=== PATIENT | male | born 1950 | race Caucasian/White ===

== ENCOUNTER 2019-03-06 08:08 | Day surgery (SDC) | payer MEDICARE, BC ==
[2019-03-03 09:21] VITALS: BMI 43.0
[2019-03-06 08:58] LABS: #Eosinphils 0.2 thou/uL (0.0-0.7); #Lymphocytes 1.6 thou/uL (1.20-3.40); #Monocytes 0.6 thou/uL (0.11-0.59); #Neutrophils 4.9 thou/uL (1.40-6.50); %Basophils 0.5 % (0.0-1.0); %Eosinophils 2.8 % (0.0-10.0); %Lymphocytes 21.6 % (21.0-51.0); %Monocytes 8.6 % (0.0-10.0); %Neutrophils 66.5 % (42.0-75.0); Hemoglobin 15.2 g/dL (14.0-18.0); Mean Corpuscular HGB CONC 33.1 g/dL (32.0-36.0); Mean Corpuscular Hemoglobin 29.4 pg (27.0-31.0); Mean Corpuscular Volume 88.7 fL (78.0-98.0); Mean Platelet Volume 7.4 fL (7.4-10.4); Platelet Count 207 thou/uL (130-400); RBC Distribution Width 13.6 % (11.5-14.5); Red Blood Cell (RBC) Count 5.18 mill/uL (4.70-6.10); White Blood Cell (WBC) Count 7.4 thou/uL (4.8-10.8)
[2019-03-06 09:08] LABS: INR-International Normal Ratio 1.1; PTT 33.3 SEC (22.9-36.1); Prothrombin Time 14.1 SEC (12.0-14.7)
[2019-03-06 09:23] LABS: Anion Gap 17 mmol/L (10-20); BUN (Urea Nitrogen) 27 mg/dL (8.4-25.7); Calc. Creatinine Clearance 117 mL/min (70-130); Calcium 9.3 mg/dL (7.8-10.44); Carbon Dioxide 20 mmol/L (23-31); Chloride 103 mmol/L (98-107); Estimated GFR-MDRD 63; Glucose 121 mg/dL (80-115); Potassium 4.1 mmol/L (3.5-5.1); Sodium 136 mmol/L (136-145)
[2019-03-06] MEDS ORDERED: Iothalamate Meglumine 60% 50 ML VIAL FS ONE (09:45)
[2019-03-06] MEDS ORDERED: Fentanyl 100 MCG/2 ML VIAL ONE (09:49)
[2019-03-06] MEDS ORDERED: Lidocaine 1% PF 5 ML VIAL ONE (10:51)
[2019-03-06] MEDS ORDERED: PROPOFOL 200 MG/20 ML VIAL ONE (10:51)
[2019-03-06] MEDS ORDERED: ePHEDrine 50 MG/ML VIAL ONE (10:51)
[2019-03-06] MEDS ORDERED: Ondansetron PF 4 MG/2 ML Vial ONE (10:51)
--- NOTE | 2019-03-06 15:24 | OP ---
DATE OF PROCEDURE: 03/06/2019 PREOPERATIVE DIAGNOSES: Bladder lesion, microhematuria. POSTOPERATIVE DIAGNOSES: Bladder lesion, microhematuria. PROCEDURES PERFORMED: Cystoscopy, biopsy/fulguration of a small, less than 0.5 cm papillary tumor next and just lateral to, but not involving the left ureteral orifice. He also got bilateral retrogrades. We did a biopsy and fulguration of this area. PATHOLOGY SENT: Bladder lesion/small bladder tumor. ESTIMATED BLOOD LOSS: Minimal. Retrograde studies appeared normal to my review. No filling defects. Good drainage on both sides and these were done after the little biopsy and fulguration. FINDINGS: There is a small less than half a centimeter papillary tumor lateral to the left ureteral orifice that was removed with cold cup biopsy forceps and fulgurated with a Bugbee electrode. Stent was not placed as the ureter was draining well and the Conklin catheter was not placed. DESCRIPTION OF PROCEDURE: Obtained written and verbal consent from the patient. After receiving IV antibiotics, he was taken to the operating suite. He was placed in the supine position on the treatment table. PlexiPulses were placed on his lower extremities and turned on. He was given general anesthetic and oral obturator intubation. He was placed in the dorsal lithotomy position and sterilely prepped and draped. Cystoscopy was performed with a 22-Norwegian sheath. This was well lubricated and passed under direct vision through the male urethra into the urinary bladder with aid of a video camera and a 30-degree lens. The bladder was filled and emptied number of times. It was examined both with the 30- and the 70-degree lens. Then, using the 30-degree lens, we brought in a cold cup biopsy forceps and used this to remove the small tumor. We did this in 2 bites. We then cauterized the tumor bed in the mucosa adjacent to it with a small Bugbee electrode. At this point, the bladder was drained, and then, we brought in a 5-Norwegian cone-tipped catheter that was flushed with contrast, it was placed into the left ureteral orifice and contrast was injected in a retrograde manner filling out the ureter and collecting system, probably about 10 to 12 mL of contrast total. There was no filling defect. No evidence of parts of obstruction and the sides drained well. The right side was done, it also drained well. At this point, the bladder was drained. The instruments were removed, and he was awakened and taken by stretcher to the recovery room. Job ID: [id number]
--- NOTE | 2019-03-07 07:27 | RAD ---
Bilateral retrograde pyelogram: HISTORY: Hematuria COMPARISON: CT scan, 02/22/2019 FINDINGS: There is injection of both the right and left ureters. In the upper pole of the right kidney there is a fairly large filling defect in the upper calyx region corresponding to of large calculus on CT. No evidence for ureteral calculus or obstruction. IMPRESSION: No obstructing calculus. Filling defect in the upper pole calyx of the right kidney corresponding to prior right upper pole renal calculus.
== END 2019-03-06 12:20 | disposition home or self-care (01) ==
LOC: SDC 08:08
PROVIDERS: ATTEND Urology
PROC: 0T5B8ZZ Destruction of Bladder, Via Natural or Artificial Opening Endoscopic (ICD-10-PCS; principal; 2019-03-06)
DX: C67.9 Malignant neoplasm of bladder, unspecified (principal); I10 Essential (primary) hypertension; Z79.899 Other long term (current) drug therapy
CPT/HCPCS: 52224; 74420; 80048; 85025; 85610; 85730; C1758; 36415; 88305; 88341; 88342; J0690; J2001; J2405; J2704; J3010; J3490

== ENCOUNTER 2025-03-10 13:46 | Inpatient (IN) | payer MEDICARE, BC ==
[~2025-03-10 13:46] MED LIST: Iopamidol-370 76% 500 ML MDV (1 ML CHARGE) ONE
[2025-03-10 15:14] LABS: #Basophils 0.03 10x3/uL (0.0-0.2); #Eosinophils Less than 0.03 10x3/uL (0.0-0.7); #Monocytes 0.92 10x3/uL (0.11-0.59); #Neutrophils 6.66 10x3/uL (1.40-6.50); %Basophils 0.4 % (0.0-1.0); %Eosinophils 0.1 % (0.0-10.0); %Lymphocytes 8.9 % (21.0-51.0); %Monocytes 11.0 % (0.0-10.0); %Neutrophils 79.2 % (42.0-75.0); Hematocrit 50.6 % (42.0-52.0); Hemoglobin 17.2 g/dL (14.0-18.0); Mean Corpuscular Hemoglobin 29.5 pg (27.0-31.0); Mean Corpuscular Volume 86.6 fL (78.0-98.0); Platelet Count 167 10x3/uL (130-400); Red Blood Cell (RBC) Count 5.84 mill/uL (4.70-6.10); White Blood Cell (WBC) Count 8.40 10x3/uL (4.8-10.8)
[2025-03-10 15:20] LABS: Actual Bicarbonate (HCO3v) 23.6 mEq/L (22-28); Analyzer IN Cardio OR; Base Excess 0.0 mEq/L (-2.0 to +3.0); Calcium, Ionized (venous) 1.10 mmol/L (1.16-1.32); Chloride (VBG) 100 mmol/L (98-106); Hematocrit-VBG 54 % (42.0-52.0); Hemoglobin (Hb) 18.3 g/dL (12.6-17.4); Potassium (VBG) 3.57 mmol/L (3.70-5.30); Sodium 139 mmol/L (133-146)
[2025-03-10 15:36] LABS: ALT (SGPT) 17 U/L (Less than 45); AST (SGOT) 33 U/L (11-34); Albumin 3.7 g/dL (3.1-4.5); Alkaline Phosphatase 67 U/L (40-110); Anion Gap 17 mmol/L (10-20); BUN (Urea Nitrogen) 25 mg/dL (8.4-25.7); Bilirubin, Total 1.2 mg/dL (0.3-1.2); Calc. Creatinine Clearance 0 mL/min (70-130); Calcium 9.2 mg/dL (7.8-10.44); Carbon Dioxide 23 mmol/L (23-31); Chloride 100 mmol/L (98-107); Globulin 3.3 g/dL (2.4-3.5); Glucose 137 mg/dL (83-110); Magnesium 1.9 mg/dL (1.6-2.6); Potassium 3.4 mmol/L (3.5-5.1); Sodium 137 mmol/L (136-145)
[2025-03-10 15:39] LABS: Troponin I 0.042 ng/mL (< 0.028)
[2025-03-10 15:56] LABS: Free T4 (Free Thyroxine) 1.06 ng/dL (0.70-1.48); Thyroid Stimulating Hormone 1.0366 uIU/mL (0.35-4.94)
[2025-03-10] MEDS ORDERED: Aspirin Chewable 81 MG TAB ONE (16:09)
[2025-03-10] MEDS ORDERED: Metoprolol Tartrate 5 MG (5 mL) VIAL ONE (18:48)
[2025-03-10] MEDS ORDERED: Ondansetron PF 4 MG/2 ML Vial IVP PRN (18:49)
[2025-03-10 19:00] LABS: Bacteria/HPF None Seen HPF (None Seen); CAUTI Indications for Culture Dysuria,urgency,freq; Glucose, Urine (Dipstick) Normal (Negative); Leukocyte Negative Leu/uL (Negative); Protein, Urine (Dipstick) 20 mg/dL (Neg-Trace); Specific Gravity, Urine 1.016 (1.002-1.036); WBC/HPF 0-3 HPF (0-3)
[2025-03-10 19:02] LABS: Urine Culture Reflex No No
[2025-03-10 21:05] VITALS: BMI 48.6
[2025-03-10] MEDS: Enoxaparin 30 MG (0.3 mL) SYRINGE SC SCH (22:59)
[2025-03-11 04:37] LABS: #Basophils 0.03 10x3/uL (0.0-0.2); #Eosinophils 0.04 10x3/uL (0.0-0.7); #Monocytes 1.05 10x3/uL (0.11-0.59); #Neutrophils 4.39 10x3/uL (1.40-6.50); %Basophils 0.4 % (0.0-1.0); %Eosinophils 0.6 % (0.0-10.0); %Lymphocytes 19.8 % (21.0-51.0); %Monocytes 15.2 % (0.0-10.0); %Neutrophils 63.6 % (42.0-75.0); Hematocrit 48.0 % (42.0-52.0); Hemoglobin 16.0 g/dL (14.0-18.0); Mean Corpuscular Hemoglobin 29.2 pg (27.0-31.0); Mean Corpuscular Volume 87.6 fL (78.0-98.0); Platelet Count 173 10x3/uL (130-400); Red Blood Cell (RBC) Count 5.48 mill/uL (4.70-6.10); White Blood Cell (WBC) Count 6.91 10x3/uL (4.8-10.8)
[2025-03-11 05:30] LABS: Anion Gap 14 mmol/L (10-20); BUN (Urea Nitrogen) 23 mg/dL (8.4-25.7); Calc. Creatinine Clearance 107 mL/min (70-130); Calcium 8.5 mg/dL (7.8-10.44); Carbon Dioxide 26 mmol/L (23-31); Chloride 102 mmol/L (98-107); Glucose 104 mg/dL (83-110); Potassium 3.9 mmol/L (3.5-5.1); Sodium 138 mmol/L (136-145)
[2025-03-11] MEDS: Acetaminophen 325 MG TAB PO PRN (20:15)
[2025-03-12 04:05] LABS: #Basophils 0.04 10x3/uL (0.0-0.2); #Eosinophils 0.12 10x3/uL (0.0-0.7); #Monocytes 0.77 10x3/uL (0.11-0.59); #Neutrophils 3.79 10x3/uL (1.40-6.50); %Basophils 0.7 % (0.0-1.0); %Eosinophils 2.0 % (0.0-10.0); %Lymphocytes 20.3 % (21.0-51.0); %Monocytes 12.9 % (0.0-10.0); %Neutrophils 63.8 % (42.0-75.0); Hematocrit 48.2 % (42.0-52.0); Hemoglobin 15.9 g/dL (14.0-18.0); Mean Corpuscular Hemoglobin 28.8 pg (27.0-31.0); Mean Corpuscular Volume 87.3 fL (78.0-98.0); Platelet Count 156 10x3/uL (130-400); Red Blood Cell (RBC) Count 5.52 mill/uL (4.70-6.10); White Blood Cell (WBC) Count 5.95 10x3/uL (4.8-10.8)
[2025-03-12 04:35] LABS: Anion Gap 12 mmol/L (10-20); BUN (Urea Nitrogen) 19 mg/dL (8.4-25.7); Calc. Creatinine Clearance 125 mL/min (70-130); Calcium 8.6 mg/dL (7.8-10.44); Carbon Dioxide 27 mmol/L (23-31); Chloride 100 mmol/L (98-107); Glucose 132 mg/dL (83-110); Potassium 3.2 mmol/L (3.5-5.1); Sodium 136 mmol/L (136-145)
[2025-03-12] MEDS: Allopurinol 300 MG TAB PO SCH (09:33)
[2025-03-13] MEDS: Diclofenac 1% 50 GM TOPICAL GEL TP SCH (02:01)
[2025-03-13] MEDS: Nystatin Powder 15 GM BOT TOP PRN (02:01)
[2025-03-13 03:47] LABS: #Basophils 0.04 10x3/uL (0.0-0.2); #Eosinophils 0.11 10x3/uL (0.0-0.7); #Monocytes 0.89 10x3/uL (0.11-0.59); #Neutrophils 4.85 10x3/uL (1.40-6.50); %Basophils 0.6 % (0.0-1.0); %Eosinophils 1.5 % (0.0-10.0); %Lymphocytes 18.1 % (21.0-51.0); %Monocytes 12.3 % (0.0-10.0); %Neutrophils 67.1 % (42.0-75.0); Hematocrit 47.0 % (42.0-52.0); Hemoglobin 15.7 g/dL (14.0-18.0); Mean Corpuscular Hemoglobin 29.2 pg (27.0-31.0); Mean Corpuscular Volume 87.5 fL (78.0-98.0); Platelet Count 142 10x3/uL (130-400); Red Blood Cell (RBC) Count 5.37 mill/uL (4.70-6.10); White Blood Cell (WBC) Count 7.23 10x3/uL (4.8-10.8)
[2025-03-13 04:06] LABS: Anion Gap 13 mmol/L (10-20); BUN (Urea Nitrogen) 17 mg/dL (8.4-25.7); Calc. Creatinine Clearance 127 mL/min (70-130); Calcium 8.7 mg/dL (7.8-10.44); Carbon Dioxide 27 mmol/L (23-31); Chloride 98 mmol/L (98-107); Glucose 136 mg/dL (83-110); Potassium 3.2 mmol/L (3.5-5.1); Sodium 135 mmol/L (136-145)
[2025-03-13 10:40] LABS: Campy jejuni + coli by PCR Negative (Negative); STEC Shiga Toxin 1+2 Negative (Negative); Salmonella spp. by PCR Negative (Negative); Shigella spp + EIEC by PCR Negative (Negative)
[2025-03-15 12:25] VITALS: BP 125/81; TEMP 98
[2025-03-15] MEDS ORDERED: Transdermal Patch Removal LIDOCAINE TOP SCH (23:00)
== END 2025-03-15 15:49 | DRG 308 ==
LOC: ERS 13:46 → PCU 18:31
PROVIDERS: ADMIT Internal Medicine; ATTEND Internal Medicine
DX: I48.91 Unspecified atrial fibrillation (principal); J96.01 Acute respiratory failure with hypoxia; J98.11 Atelectasis; N40.0 Benign prostatic hyperplasia without lower urinary tract symptoms; M10.9 Gout, unspecified; I10 Essential (primary) hypertension; E78.5 Hyperlipidemia, unspecified; Z88.0 Allergy status to penicillin; Z98.890 Other specified postprocedural states; E87.6 Hypokalemia; G47.33 Obstructive sleep apnea (adult) (pediatric); Z99.81 Dependence on supplemental oxygen; R29.6 Repeated falls; M70.51 Other bursitis of knee, right knee
CPT/HCPCS: 36415; 71045; 71275; 80048; 80053; 81001; 82805; 83605; 83735; 83880; 84439; 84443; 84484; 85025; 87040; 87086; 87324; 87449; 87505; 93005; 93306; 94760; 96374; 97139; J1650; J2919; J7030; Q9967